=== PATIENT | male | born 1975 | race Caucasian/White ===

== ENCOUNTER 2018-02-27 12:29 | Emergency (ER) | payer OTHER, BC ==
[~2018-02-27] VITALS: Ht 175.3 cm; Wt 81.2 kg
[~2018-02-27 12:29] MED LIST: IBP800T PO
--- OUTSIDE RECORDS SUMMARY | 2018-02-27 12:36 | XMS REPORT | Continuity of Care Document ---
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 Social History History Response Recorded Date/Time Alcohol Use Occasionally Uses 02/10/13 12 :46am Recreational Drug Use N 02/10/13 12:46am Sexually Transmitted Disease N 02/10/13 12:46am Allergies, Adverse Reactions, Alerts Allergen Type Severity Reaction Last Updated No Known Drug Allergies 02/10/13 Medications Medication Dose Units Route Sig Qty Days Ibuprofen (Motrin) 800 Mg PO Q8HR PRN 30 Response Recorded Date/Time Status not known Unknown Results No Known Relevant Diagnostic Tests, Laboratory Data and/or Discharge Summary. Encounters Encounter Location Date/Time Departed Emergency Room [facility] – [place] [facility] 04/17 12:40am
--- NOTE | 2018-02-27 13:15 | ED Integumentary General ---
General Chief Complaint: Bite-Animal/Human/Insect Stated Complaint: DOG BITE RT ANKLE Nursing Triage Note: ARRIVED VIA AMB TO ROOM 06. 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 STATES THE OWNERS WERE HOME AND RABIES VACCINATION IS UTD. 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 He states that he saw them coming and dropped his bag to deter them however the larger of the 2 penetrated his defense and bit him about the right ankle. The home owners were present and provided evidence of rabies shots. He reports that of the several puncture wounds the 1 on the lateral aspect was the most painful. Allergies and Home Medications Allergies Coded Allergies: Penicillins (Verified Allergy, Severe, 02/27/18) Home Medications No Active Prescriptions or Reported Meds Patient Home Medication List Home Medication List Reviewed: Yes Constitutional: see HPI EENTM: no symptoms reported Respiratory: no symptoms reported Cardiovascular: no symptoms reported Gastrointestinal: no symptoms reported Musculoskeletal: see HPI Skin: see HPI Past Jxbmkyh-Sonbzh-Jjneks Hx Patient Social History Alcohol Use: Denies Use Recreational Drug Use: No Smoking Status: Current Everyday Smoker Recent Foreign Travel: No Contact w/Someone Who Travel: No Recent Infectious Disease Expo: No Seasonal Allergies Seasonal Allergies: Yes (HAYFEVER) Past Medical History Surgeries: Yes (BRONCHIAL SURG) Respiratory: No Cardiac: No Neurological: No Reproductive Disorders: No Sexually Transmitted Disease: No Genitourinary: No Gastrointestinal: No Musculoskeletal: No Endocrine: No Cancer: No Psychosocial: No Integumentary: No Blood Disorders: No Family Medical History No Pertinent Family Hx Physical Exam Vital Signs Vital Signs - First Documented 02/27/18 12:31 Temp 98.0 Pulse 93 Resp 16 B/P (MAP) 162/102 (122) Pulse Ox 97 O2 Delivery Room Air Capillary Refill : Less Than 3 Seconds General Appearance: no apparent distress HEENT: normal ENT inspection Neck: non-tender, full range of motion, supple, normal inspection Cardiovascular: normal peripheral pulses, regular rate, rhythm, no edema, no gallop, no JVD, no murmur Respiratory: chest non-tender, lungs clear, normal breath sounds, no respiratory distress, no accessory muscle use Comments The wounds lie at the distal portion of the heel cord. There are 2 relatively shallow wounds medially. There is a somewhat larger puncture at 2-3 mm and vertically oriented laterally and very near the heel cord. The wound was irrigated with saline and no visible heel cord was noted. Progress/Results/Core Measures Results/Orders Vital Signs/I&O 02/27/18 12:31 Temp 98.0 Pulse 93 Resp 16 B/P (MAP) 162/102 (122) Pulse Ox 97 O2 Delivery Room Air Blood Pressure Mean: 122 Departure Communication (Admissions) The dog owners provided current evidence of vaccinations from the dental practitioner. He will require a tetanus shot Impression Primary Impression: Dog bite Disposition: 01 HOME, SELF-CARE Condition: Stable/Unchanged Departure-Patient Inst. Decision time for Depature: 13:18 Referrals: DELGADO SCHMITZ DO (PCP/Family) Primary Care Physician Patient Instructions: Animal Bites (DC) Add. Discharge Instructions: All discharge instructions reviewed with patient and/or family. Voiced understanding. Avoid harsh flexion of your foot upward until pain has been relieved. You may walk as able and without pain Scripts No Active Prescriptions or Reported Meds SCHUYLER KENDALL MD Feb 27, 2018 13:15
[2018-02-27] MEDS ORDERED: TETANUS,DIPTH,PERTUSS P/F (BOOSTRIX) 0.5 ML VIAL IM ONE (13:30)
[2018-02-27 13:50] VITALS: BP 149/97
== END 2018-02-27 13:50 | disposition home or self-care (01) ==
LOC: EDUNIT# 12:29 → ER 12:32
DX: S91.051A Open bite, right ankle, initial encounter (principal); F17.200 Nicotine dependence, unspecified, uncomplicated; Z88.0 Allergy status to penicillin; W54.0XXA Bitten by dog, initial encounter
CPT/HCPCS: 90471; 90715